=== PATIENT | female | born 2000 | race Caucasian/White ===

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

== ENCOUNTER 2020-09-14 20:01 | Emergency (ER) | payer MEDICAID, OTHER ==
[2020-09-14 20:17] VITALS: BP 114/73
[2020-09-14] MEDS ORDERED: FAMOTIDINE 20 MG/2 ML INJ IV ONE (21:28)
[2020-09-14] MEDS ORDERED: SODIUM CHLORIDE 0.9% 1000 ML 1,000 ML IV ONE (21:28)
[2020-09-14] MEDS ORDERED: diphenhydrAMINE 50 MG/ML VIAL IV ONE (21:28)
[2020-09-14] MEDS ORDERED: METOCLOPRAMIDE 10 MG/2 ML INJ IV ONE (21:28)
[2020-09-14 21:44] LABS: Basophils % (Auto) 0.3 % (0.0-1.8); Eosinophils # (Auto) 0.1 K/mm3 (0.0-0.4); Hematocrit 34.4 % (30.3-42.9); Hemoglobin 11.9 gm/dl (10.1-14.3); Lymphocytes # (Auto) 1.6 K/mm3 (1.2-5.4); Lymphocytes % (Auto) 15.6 % (13.4-35.0); Mean Corpuscular HGB Conc 35 % (30-34); Mean Corpuscular Volume 82 fl (79-97); Monocytes # (Auto) 0.4 K/mm3 (0.0-0.8); Monocytes % (Auto) 4.3 % (0.0-7.3); Platelet Count 272 K/mm3 (140-440); Red Cell Distribution Width 16.6 % (13.2-15.2)
[2020-09-14 22:11] LABS: Alanine Aminotransferase 12 units/L (7-56); Albumin 3.9 g/dL (3.9-5); Blood Urea Nitrogen 7 mg/dL (7-17); Hemolysis Index 4
[2020-09-14 22:12] LABS: BUN/Creatinine Ratio 18
[2020-09-14 22:26] LABS: Bacteria,Urine 1+ /HPF (Negative); Bilirubin,Urine NEG (Negative); Blood,Urine NEG (Negative); Color,Urine Yellow (Yellow); Mucus,Urine 2+ /HPF; Urobilinogen,Urine < 2.0 mg/dL (<2.0)
--- NOTE | 2020-09-14 23:49 | Emergency Department Report ---
ED N/V/D HPI - General Chief complaint: Nausea/Vomiting/Diarrhea Stated complaint: 12WKS PREG/FEELING SICK/EMESIS Source: patient Mode of arrival: Ambulatory Limitations: No Limitations - History of Present Illness Initial comments: Patient is a A0 20-year-old female who is approximately 22 weeks gestation who presents to the ED with persistent intermittent intractable nausea and vomiting and mild epigastric pain for the last 1 month. Patient states that in the last 3 days she has not been able to keep anything down because of intractable nausea and vomiting. Patient states that she was initially taking [id number] antiemetics, Dramamine but this medicine has not helped control her nausea and vomiting especially in the last 2 weeks. Patient denies d izziness, syncope, hematemesis, diarrhea, hematochezia, fever, chills, chest pain or shortness of breath, sore throat, dysuria, urine frequency and urgency, vaginal bleeding, fever and chills or cough. MD complaint: nausea, vomiting, abdominal pain (mild epigastric pain), other (12 weeks gestation) -: Gradual, month(s) (1) Description of Vomiting: food contents, watery, bilious Associated Abdominal Pain: Yes (mild, epigastric) Location: epigastric Radiation: none Severity: moderate Pain Scale: 2 Quality: cramping, dull Consistency: intermittent Improves with: none Worsens with: eating, vomiting Context: other (12 weeks gestation) Associated Symptoms: denies other symptoms, loss of appetite, malaise, nausea/vomiting. denies: myalgias, chest pain, cough, diaphoresis, fever/chills, headaches, rash, dysuria, shortness of breath, syncope, weakness - Related Data Previous Rx's Medication Instructions Recorded Last Taken Type Acetaminophen [Tylenol] 500 mg PO Q6HR PRN #30 tablet 09/14/20 Unknown Rx Famotidine [Pepcid] 20 mg PO BID #60 tablet 09/14/20 Unknown Rx Promethazine HCl [Phenergan SUPPOS] 25 mg RC Q6H PRN #20 supp.rect 09/14/20 Unknown Rx Metoclopramide [Reglan] 10 mg PO Q8H PRN #30 tab 09/15/20 Unknown Rx Allergies Allergy/AdvReac Type Severity Reaction Status Date / Time No Known Allergies Allergy Unverified 01/06/17 09:29 ED Review of Systems ROS: Stated complaint: 12WKS PREG/FEELING SICK/EMESIS Other details as noted in HPI Constitutional: denies: chills, fever Eyes: denies: eye pain, eye discharge, vision change ENT: denies: ear pain, throat pain Respiratory: denies: cough, shortness of breath, wheezing Cardiovascular: denies: chest pain, palpitations Endocrine: no symptoms reported Gastrointestinal: abdominal pain, nausea, vomiting. denies: diarrhea Genitourinary: denies: urgency, dysuria, discharge Musculoskeletal: denies: back pain, joint swelling, arthralgia Skin: denies: rash, lesions Neurological: denies: headache, weakness, paresthesias Psychiatric: denies: anxiety, depression Hematological/Lymphatic: denies: easy bleeding, easy bruising ED Past Medical Hx - Past Medical History Previous Medical History?: No - Surgical History Past Surgical History?: No - Social History Smoking Status: Current Some Day Smoker Substance Use Type: None - Medications Home Medications: Home Medications Medication Instructions Recorded Confirmed Last Taken Type Acetaminophen [Tylenol] 500 mg PO Q6HR PRN #30 tablet 09/14/20 Unknown Rx Famotidine [Pepcid] 20 mg PO BID #60 tablet 09/14/20 Unknown Rx Promethazine HCl [Phenergan SUPPOS] 25 mg RC Q6H PRN #20 supp.rect 09/14/20 Unknown Rx Metoclopramide [Reglan] 10 mg PO Q8H PRN #30 tab 09/15/20 Unknown Rx ED Physical Exam - General Limitations: No Limitations General appearance: alert, in no apparent distress - Head Head exam: Present: atraumatic, normocephalic, normal inspection - Eye Eye exam: Present: normal appearance, PERRL, EOMI Pupils: Present: normal accommodation - ENT ENT exam: Present: normal exam, normal orophraynx, mucous membranes moist, TM's normal bilaterally, normal external ear exam - Neck Neck exam: Present: normal inspection, full ROM - Respiratory Respiratory exam: Present: normal lung sounds bilaterally. Absent: respiratory distress, wheezes, rales, rhonchi, stridor, chest wall tenderness, accessory muscle use, decreased breath sounds, other - Cardiovascular Cardiovascular Exam: Present: regular rate, normal rhythm, normal heart sounds. Absent: systolic murmur, diastolic murmur, rubs, gallop - GI/Abdominal GI/Abdominal exam: Present: soft, normal bowel sounds. Absent: tenderness, guarding, rebound, hyperactive bowel sounds, hypoactive bowel sounds, organomegaly - Extremities Exam Extremities exam: Present: normal inspection, full ROM, normal capillary refill - Back Exam Back exam: Present: normal inspection, full ROM. Absent: tenderness, CVA tenderness (R), CVA tenderness (L), muscle spasm, paraspinal tenderness, vertebral tenderness - Neurological Exam Neurological exam: Present: alert, oriented X3, CN II-XII intact, normal gait, reflexes normal - Psychiatric Psychiatric exam: Present: normal affect, normal mood - Skin Skin exam: Present: warm, dry, intact, normal color. Absent: rash ED Course Vital Signs 09/14/20 20:15 Temperature 98.8 F Pulse Rate 96 H Respiratory 18 Rate Blood Pressure 114/73 O2 Sat by Pulse 97 Oximetry ED Medical Decision Making - Lab Data Result diagrams: 09/14/20 21:31 09/14/20 21:31 - Medical Decision Making This is a A0 20-year-old female who is approximately 22 weeks gestation who presents to the ED with persistent intermittent intractable nausea and vomiting and mild epigastric pain for the last 1 month. Patient states that in the last 3 days she has not been able to keep anything down because of intractable nausea and vomiting. Patient states that she was initially taking [id number] antiemetics, Dramamine but this medicine has not helped control her nausea and vomiting especially in the last 2 weeks. In the ED, patient is alert and oriented x3 and is not in distress. Lab test results were reviewed and are all nonactionable. Patient was treated for nausea and vomiting with antiemetics, also treated for pain and given antacids and normal saline 1 L IV bolus x1. On reevaluation, patient nausea and vomiting resolved and patient passed oral fluid challenge in the ED with no difficulties. Patient was therefore discharged home on medications and advised to follow-up with her [employer] physician in 5 to 7 days for reevaluation. Patient is advised return to the ED immediately if symptoms get worse. - Differential Diagnosis Hyperemesis gravidarum; gastroenteritis; GERD; UTI; Critical care attestation.: If time is entered above; I have spent that time in minutes in the direct care of this critically ill patient, excluding procedure time. ED Disposition Clinical Impression: Mild hyperemesis gravidarum GERD (gastroesophageal reflux disease) Qualifiers: Esophagitis presence: esophagitis presence not specified Qualified Code(s): K21.9 - Gastro-esophageal reflux disease without esophagitis Disposition: TO HOME OR SELFCARE Is pt being admited?: No Does the pt Need Aspirin: No Condition: Stable Instructions: Gastroesophageal Reflux Disease, Adult, [id number], Morning Sickness, [id number], Hyperemesis Gravidarum Additional Instructions: Maintain a clear liquid diet for 12 to 24 hours, drink plenty of fluids, take medication as needed for nausea and vomiting, follow-up with your [employer] physician in 5 to 7 days for reevaluation. Return to the ED immediately if symptoms get worse. Prescriptions: Acetaminophen [Tylenol] 500 mg PO Q6HR PRN #30 tablet PRN Reason: Pain , Severe (7-10) Famotidine [Pepcid] 20 mg PO BID #60 tablet Promethazine HCl [Phenergan SUPPOS] 25 mg RC Q6H PRN #20 supp.rect PRN Reason: Nausea And Vomiting Metoclopramide [Reglan] 10 mg PO Q8H PRN #30 tab PRN Reason: Nausea Referrals: KASSY SAUER MD [Staff Physician] - 3-5 Days Time of Disposition: 23:56 Print Language: SLOVEN[place]
[2020-09-14] MEDS ORDERED: ACETAMINOPHEN 500 MG TAB PO ONE (23:50)
[2020-09-15] MEDS ORDERED: ONDANSETRON 4 MG/2 ML INJ IV ONE (00:38)
[2020-09-15] MEDS ORDERED: ONDANSETRON 4 MG/2 ML INJ ONE (00:41)
== END 2020-09-15 00:23 | disposition home or self-care (01) ==
LOC: ED 20:01
DX: O21.0 Mild hyperemesis gravidarum (principal); O99.611 Diseases of the digestive system complicating pregnancy, first trimester; K21.9 Gastro-esophageal reflux disease without esophagitis; Z79.899 Other long term (current) drug therapy; Z3A.12 12 weeks gestation of pregnancy
CPT/HCPCS: 36415; 80053; 81001; 84702; 85025; 96361; 96374; 96375; 99283; J1200; J2405; J2765; J7030